=== PATIENT | male | born 1980 | race Caucasian/White ===

== ENCOUNTER 2020-05-27 13:56 | Emergency (ER) | payer SELFPAY ==
[2020-05-27 14:18] VITALS: BP 154/98; PULSE 88; TEMP 97.8; BMI 38.0
== END 2020-05-27 14:37 | disposition home or self-care (01) ==
LOC: JER 13:56
DX: Z03.818 Encounter for observation for suspected exposure to other biological agents ruled out (principal)
CPT/HCPCS: C9803; G2012-GT; U0003